=== PATIENT | male | born 1955 | race Caucasian/White ===

== ENCOUNTER 2016-10-20 10:26 | Day surgery (SDC) | payer OTHER ==
[~2016-10-20] VITALS: Ht 182.9 cm; Wt 91.0 kg
[2016-10-20] VITALS (10 sets, daily range): BP systolic 119–162; BP diastolic 56–73; PULSE 48–64; RESP 14–24; Ht 182.9 cm; Wt 91.0 kg
[~2016-10-20 10:26] MED LIST: DEXAMETHASONE 4 MG/ML 1 ML INJ ONE
--- NOTE | 2016-10-20 11:26 | HPN ---
Date/Time of Note Date/Time of Note DATE: 10/20/16 TIME: 11:26 Interval H&P Admission Note Pt. seen H&P reviewed: No system changes RENAN LING MD Oct 20, 2016 11:26
[2016-10-20] MEDS ORDERED: SOD CHLORIDE 0.9% 1,000 ML IV SCH (12:00)
[2016-10-20] MEDS ORDERED: INSULIN ASPART [NOVOLOG] 3 ML PEN SC ONE (12:00)
[2016-10-20] MEDS ORDERED: CEFAZOLIN 2 GM/50 ML (PMX) 50 ML IVPB ONE (12:30)
[2016-10-20] MEDS ORDERED: PROPOFOL 20 ML ONE (13:01)
[2016-10-20] MEDS ORDERED: FENTAnyl 50 MCG/ML VIAL ONE (13:01)
[2016-10-20] MEDS ORDERED: MIDAZOLAM 1 MG/ML 2 ML INJ ONE (13:01)
[2016-10-20] MEDS ORDERED: ONDANSETRON 4 MG INJ ONE (13:27)
[2016-10-20] MEDS ORDERED: CEFAZOLIN 1 GM INJ ONE (13:27)
[2016-10-20] MEDS ORDERED: KETOROLAC 30 MG INJ ONE (13:27)
[2016-10-20] MEDS ORDERED: METOCLOPRAMIDE 10 MG INJ ONE (13:27)
[2016-10-20] MEDS ORDERED: ROCURONIUM 50 MG INJ ONE (13:50)
[2016-10-20] MEDS ORDERED: EPHEDrine SULFATE 50 MG/5 ML SYG IV PRN (14:30)
[2016-10-20] MEDS ORDERED: MEPERIDINE 25 MG INJ IV PRN (14:30)
[2016-10-20] MEDS ORDERED: DIPHENHYDRAMINE 50 MG INJ IV PRN (14:30)
[2016-10-20] MEDS ORDERED: METOCLOPRAMIDE 10 MG INJ IV PRN (14:30)
[2016-10-20] MEDS ORDERED: ONDANSETRON 4 MG INJ IV PRN (14:30)
[2016-10-20] MEDS ORDERED: LABETALOL HCL 20MG INJ IV PRN (14:30)
[2016-10-20] MEDS ORDERED: ALBUMIN HUMAN 5% 250 ML IV PRN (14:30)
[2016-10-20] MEDS ORDERED: morphine (1 MG/ML) 10ML SYRINGE IV PRN ×3 (14:30)
[2016-10-20] MEDS ORDERED: FENTAnyl 50 MCG/ML VIAL IV PRN ×3 (14:30)
[2016-10-20] MEDS ORDERED: HYDROCODONE/APAP (5/325) TAB PO PRN (14:30)
--- NOTE | 2016-10-20 14:46 | OPR ---
Date/Time of Note Date/Time of Note DATE: 10/20/16 TIME: 14:37 Operative Report Procedure Date: Oct 20, 2016 Preoperative Diagnosis Large bladder tumor Postoperative Diagnosis Large bladder tumor Operation Performed Transurethral resection of large bladder tumors Surgeon: RENAN LING MD Anesthesia: general Anesthesiologist: GALA VAUGHN MD Estimated Blood Loss: 10 - 50 ml's Specimens 1-bladder tumor, 2-base of bladder tumor Complications: None Pt Condition Post Procedure: stable Disposition: PACU Indications Large bladder tumors Operative\Procedure Findings Patient was brought to the operating room. Time out was done, the patient was identified by his name, birthdate and the procedure. The patient was given general anesthesia and then positioned in the lithotomy position. He was given 2 g of Ancef IV at the start of the procedure. He was then prepped and draped in the usual sterile manner. #22 Romanian cystoscope sheath was introduced under direct vision through the penile urethra all the way to the bladder. The bladder was inspected and the patient had a very large tumor located proximally to the left ureteral orifice about 1 cm away from it. There was another tumor at the bladder neck around the 4 to 5 o'clock position. The remaining of the bladder was clear. The cystoscope was then removed and the urethra dilated with a Joey dilators up to #30 Romanian. #26 Romanian bipolar resectoscope sheath was then introduced under direct vision into the bladder. Then the tumor was resected, care taken not to cause any injury to the bladder wall or the ureteral orifice. Once the very large tumor was resected then I resected the small tumor at the bladder neck. The specimen was collected and sent as bladder tumor. Then I did resect the base of the bladder tumor and send it in a separate container as a second specimen. All the bleeders were electrocoagulated, the base and the edges of the tumor were all electrocoagulated. The left ureteral orifice was intact. The bladder was then inspected and there was no additional tumors. The scope was removed. #20 Romanian three-way Cornelius catheter was inserted. The balloon inflated with 30 mL of sterile water. Continuous bladder irrigation was started in the operating room and I will keep it for 1 hour then discontinue it then the patient will be discharged home with a Cornelius catheter and a leg bag and follow-up in the office next week on Monday to remove the Cornelius catheter. RENAN LING MD Oct 20, 2016 14:46
== END 2016-10-20 16:58 | disposition home or self-care (01) ==
LOC: SDS 10:26
PROVIDERS: ATTEND Urology
DX: C67.9 Malignant neoplasm of bladder, unspecified (principal); E11.9 Type 2 diabetes mellitus without complications; I10 Essential (primary) hypertension
CPT/HCPCS: 52240; 82962; 88305; J0690; J1100; J1815; J1885; J2250; J2405; J2765; J3010; Z7512; Z7610

== ENCOUNTER 2017-02-01 05:35 | Day surgery (SDC) | payer OTHER ==
[~2017-02-01] VITALS: Ht 182.9 cm; Wt 91.0 kg
[2017-02-01] VITALS (29 sets, daily range): BP systolic 149–181; BP diastolic 57–79; PULSE 55–64; RESP 17–18; Ht 182.9 cm; Wt 91.0 kg
[~2017-02-01 05:35] MED LIST changes: -DEXAMETHASONE 4 MG/ML 1 ML INJ ONE; +MITOMYCIN 40 MG VIAL IS ONE
[2017-02-01] MEDS ORDERED: CEFAZOLIN 2 GM/50 ML (PMX) 50 ML IVPB SCH (07:00)
[2017-02-01] MEDS ORDERED: INSULIN ASPART [NOVOLOG] 3 ML PEN SC ONE (07:00)
[2017-02-01] MEDS ORDERED: PROPOFOL 20 ML ONE (07:19)
[2017-02-01] MEDS ORDERED: ROCURONIUM 50 MG INJ ONE (07:19)
[2017-02-01] MEDS ORDERED: GLIM2TAB PO (07:21)
[2017-02-01] MEDS ORDERED: LISI40TA9 PO (07:21)
[2017-02-01] MEDS ORDERED: MIRT30TA7 PO (07:21)
[2017-02-01] MEDS ORDERED: METF850T PO (07:21)
[2017-02-01] MEDS ORDERED: ASPI81TA3 PO (07:21)
[2017-02-01] MEDS ORDERED: ZOLP10TA PO (07:21)
[2017-02-01] MEDS ORDERED: MECL-77 PO (07:21)
[2017-02-01] MEDS ORDERED: METO-335 PO (07:21)
[2017-02-01] MEDS ORDERED: ATOR40TA68 PO (07:21)
[2017-02-01] MEDS ORDERED: FENTAnyl 50 MCG/ML VIAL ONE (07:23)
--- NOTE | 2017-02-01 07:23 | HPN ---
Date/Time of Note Date/Time of Note DATE: 02/01/17 TIME: 07:23 Interval H&P Admission Note Pt. seen H&P reviewed: No system changes RENAN LING MD Feb 01, 2017 07:23
[2017-02-01] MEDS ORDERED: LABETALOL HCL 20MG INJ ONE (07:43)
[2017-02-01] MEDS ORDERED: SUGAMMADEX SODIUM 200 MG/2 ML VIAL IV ONE (08:06)
[2017-02-01] MEDS ORDERED: LIDOCAINE 2% (SDV) 5 ML INJ ONE (08:06)
[2017-02-01] MEDS ORDERED: HYDROmorphONE (0.2 MG/ML) 10ML SYG IV PRN ×3 (08:30)
[2017-02-01] MEDS ORDERED: DIPHENHYDRAMINE 50 MG INJ IV PRN (08:30)
[2017-02-01] MEDS ORDERED: ONDANSETRON 4 MG INJ IV PRN (08:30)
[2017-02-01] MEDS ORDERED: EPHEDrine SULFATE 50 MG/5 ML SYG IV PRN (08:30)
[2017-02-01] MEDS ORDERED: MEPERIDINE 25 MG INJ IV PRN (08:30)
[2017-02-01] MEDS ORDERED: FENTAnyl 50 MCG/ML VIAL IV PRN ×3 (08:30)
[2017-02-01] MEDS ORDERED: KETOROLAC 30 MG INJ IV PRN (08:30)
[2017-02-01] MEDS ORDERED: LABETALOL HCL 20MG INJ IV PRN (08:30)
[2017-02-01] MEDS ORDERED: OXYCODONE/ACETAMINOPHEN (5/325) TAB PO PRN ×2 (08:30)
[2017-02-01] MEDS ORDERED: hydrALAzine 20 MG INJ IV PRN (08:30)
[2017-02-01] MEDS ORDERED: HYDROCODONE/APAP (5/325) TAB PO PRN (08:30)
--- NOTE | 2017-02-01 08:33 | OPR ---
Date/Time of Note Date/Time of Note DATE: 02/01/17 TIME: 08:27 Operative Report Procedure Date: Feb 01, 2017 Preoperative Diagnosis Recurrent bladder tumor Postoperative Diagnosis Recurrent bladder tumor Operation/Procedure Performed Transurethral resection of bladder tumor and intravesical instillation of 40 mg of mitomycin-C in 40 mL of normal saline Surgeon see signature line Stick Roller None Anesthesia Type: general Anesthesiologist: DIANA RENO Estimated Blood Loss: none Transfusion none Specimen Bladder tumors Grafts/Implants none Complications none Pt Condition Post Procedure: stable Disposition: PACU Indications Recurrent bladder tumor Procedure Description The patient was brought to the operating room. General anesthesia was induced. Patient was positioned in the lithotomy position. The genital area was prepped and draped in the usual sterile manner. Timeout was done and the patient was identified by his name, birthdate, the procedure. #26 Montenegrin bipolar resectoscope was introduced under direct vision through the penile urethra all the way to the bladder. The bladder was inspected and the tumor was visualized and it is located on the anterior bladder wall near the bladder neck. The area of the previous tumor was clean and showed scar tissue. Using the resectoscope the tumor was resected, the base electrocoagulated and the edges as well. Then the resectoscope was removed and a 16 Montenegrin Cornelius catheter was inserted into the bladder. 40 mg of mitomycin-C in 40 mL of normal saline was instilled into the bladder and the catheter clamped. The patient was then transferred to the recovery room in a stable and satisfactory condition. He will be turning on each side for 15 minutes for the next 2 hours. Then the Cornelius catheter will be removed after draining the mitomycin-C into the drainage bag and dispose of it in the bio hazardous bin. RENAN LING MD Feb 01, 2017 08:33
[2017-02-01] MEDS ORDERED: hydrALAzine 20 MG INJ ONE (08:55)
== END 2017-02-01 10:56 | disposition home or self-care (01) ==
LOC: SDS 05:35
PROVIDERS: ATTEND Urology
DX: C67.9 Malignant neoplasm of bladder, unspecified (principal); I10 Essential (primary) hypertension; E11.9 Type 2 diabetes mellitus without complications; Z87.891 Personal history of nicotine dependence
CPT/HCPCS: 52224; 82962; 88309; J0360; J1815; J3010; J9280; Z7512; Z7610

== ENCOUNTER 2017-06-01 02:32 | Inpatient (IN) | END 2017-06-02 14:40 | disposition home or self-care (01) | DRG 247 ==

== ENCOUNTER 2017-10-27 10:22 | Day surgery (SDC) | END 2017-11-01 12:48 | disposition home or self-care (01) ==

== ENCOUNTER 2018-03-09 10:19 | Day surgery (SDC) | END 2018-03-09 14:57 | disposition home or self-care (01) ==

== ENCOUNTER 2018-11-27 06:10 | Day surgery (SDC) | payer OTHER ==
[2018-11-27] VITALS (12 sets, daily range): BP systolic 128–174; BP diastolic 59–73; PULSE 56–70; RESP 14–21; Ht 188 cm; Wt 101.8 kg
[~2018-11-27] VITALS: Ht 188 cm; Wt 101.8 kg
[~2018-11-27 06:10] MED LIST changes: +ASPI-903 PO; +ASPI81TA52 PO; +ATOR40TA68 PO; +CEFAZOLIN 2 GM/50 ML (PMX) 50 ML IVPB SCH; +GLIM2TAB2 PO; +LISI40TA3 PO; +METF850T13 PO; +METO-335 PO; -MITOMYCIN 40 MG VIAL IS ONE; +TICA90TA PO
[2018-11-27] MEDS ORDERED: METHYLENE BLUE 50 MG/10 ML AMPUL ONE (06:56)
[2018-11-27] MEDS ORDERED: IOHEXOL 300MG/ML 30 ML BTL ONE (06:56)
[2018-11-27] MEDS ORDERED: HYDROmorphONE 1 MG/5 ML IV SYRINGE IV PRN ×2 (07:30)
[2018-11-27] MEDS ORDERED: ONDANSETRON 4 MG INJ IV PRN (07:30)
[2018-11-27] MEDS ORDERED: hydrALAzine 20 MG INJ IV PRN (07:30)
[2018-11-27] MEDS ORDERED: LABETALOL HCL 20MG INJ IV PRN (07:30)
[2018-11-27] MEDS ORDERED: OXYCODONE/ACETAMINOPHEN (5/325) TAB PO PRN (07:30)
[2018-11-27] MEDS ORDERED: LIDOCAINE 1% (MDV) 20 ML INJ ONE (07:34)
[2018-11-27] MEDS ORDERED: ETOMIDATE 20 MG INJ ONE (07:34)
[2018-11-27] MEDS ORDERED: ROCURONIUM 50 MG INJ ONE (07:34)
[2018-11-27] MEDS ORDERED: LABETALOL HCL 20MG INJ ONE (07:45)
[2018-11-27] MEDS ORDERED: ONDANSETRON 4 MG INJ ONE (07:47)
[2018-11-27] MEDS ORDERED: CEFAZOLIN 1 GM INJ ONE (07:47)
[2018-11-27] MEDS ORDERED: SUGAMMADEX SODIUM 200 MG/2 ML VIAL IV ONE (08:19)
[2018-11-27] MEDS ORDERED: HYDROCODONE/APAP (5/325) TAB PO PRN (08:30)
== END 2018-11-27 09:59 | disposition home or self-care (01) ==
LOC: SDS 06:10
PROVIDERS: ATTEND Urology
DX: C67.5 Malignant neoplasm of bladder neck (principal); E11.9 Type 2 diabetes mellitus without complications; I10 Essential (primary) hypertension; I25.10 Atherosclerotic heart disease of native coronary artery without angina pectoris; Z79.82 Long term (current) use of aspirin; Z79.84 Long term (current) use of oral hypoglycemic drugs
CPT/HCPCS: 52204; 82962; 84132; 88305; J0360; J0690; J1170; J2405; J3010; Z7512; Z7610; Q9967; Q9968